=== PATIENT | male | born 1955 | race Two or more races ===

== ENCOUNTER → 2016-07-21 | Outpatient (CLI) | payer BC, OTHER ==
--- NOTE | 2016-07-21 11:23 | KCIC ---
PROCEDURE Thyroid ultrasound HISTORY Thyroid nodule COMPARISON January 11, 2016 FINDINGS Multiple sonographic images of the thyroid gland are submitted. Isthmus measured 0.5 centimeters in thickness. Right lobe measured 1.9 by 4.2 x 1.8 centimeters. Left lobe measured 1.7 x 4.8 x 1.9 centimeters. There is again heterogeneous solid nodule of the inferior left gland on the order of 1.5 x 1.8 x 1.4 centimeters in size, mild vascularity at the periphery, not convincingly changed. No new nodularity is demonstrated. IMPRESSION There is stable heterogeneous complex solid nodule of the inferior left gland. Electronically signed by: Dale Brown MD (Jul 21, 2016 11:21:38)
== END | disposition home or self-care (01) ==
LOC: KCIC US 10:24
PROVIDERS: ATTEND Family Medicine
DX: E04.1 Nontoxic single thyroid nodule (principal)
CPT/HCPCS: 76536

== ENCOUNTER → 2017-02-27 | Outpatient (CLI) | payer OTHER ==
--- NOTE | 2017-02-27 11:37 | KCIC ---
Ultrasound thyroid 02/27/2017 CLINICAL INDICATION: Thyroid nodules. COMPARISON: Thyroid ultrasound 07/21/2016. FINDINGS: Right lobe of the thyroid measures 4.7 x 2.4 x 2.2 cm. Left lobe of the thyroid measures 4.9 x 2.7 x 3.5 cm. Maximal AP thickness of the isthmus 0.4 cm. Slight interval increase in discrete hypoechoic left lobe thyroid nodule with minimal peripheral vascularity measuring 1.8 x 1.5 x 1.8 cm, previously 1.8 x 1.5 x 1.5 cm. IMPRESSION: Slight interval increase in discrete left lobe hypoechoic nodule, indeterminate. Finding is amenable to percutaneous biopsy if clinically indicated. If not, follow-up thyroid ultrasound in 6 months is recommended. Electronically signed by: Andrea Cortés MD (02/27/2017 11:34 AM) [id number]
== END | disposition home or self-care (01) ==
LOC: KCIC US 09:09
PROVIDERS: ATTEND Family Medicine
DX: E04.2 Nontoxic multinodular goiter (principal)
CPT/HCPCS: 76536

== ENCOUNTER → 2018-01-07 | Outpatient (CLI) | payer OTHER ==
--- NOTE | 2018-01-07 17:57 | KCIC ---
Thyroid ultrasound HISTORY: Left thyroid nodule follow-up. COMPARISON: February 27, 2017. Right thyroid: * 4.3 x 2.4 x 2.0 centimeters * No focal lesion. * Homogeneous echotexture. Isthmus: * 3 mm Left thyroid: * 4.9 x 2.6 x 2.1 cm * Dominant mass at the midpole measures 17 mm x 14 mm x 19 mm. This demonstrates a complex morphology with solid component. Mild vascularity. The sonographic appearance is similar to the prior exam. Overall measurements are roughly similar as well. IMPRESSION: Solid mass of the left thyroid is overall stable since previous exam. Electronically signed by: Gael Prieto MD (01/07/2018 5:53 PM) [id number]
== END | disposition home or self-care (01) ==
LOC: KCIC US 13:45
PROVIDERS: ATTEND Family Medicine
DX: E07.89 Other specified disorders of thyroid (principal)
CPT/HCPCS: 76536